=== PATIENT | female | born 1965 | race American Indian/Alaskan Native ===

== ENCOUNTER 2025-10-13 11:34 | Emergency (ER) | payer MEDICAID, SELFPAY ==
[2025-10-13 11:38] VITALS: PULSE 61; O2SAT 97
[2025-10-13 11:41] VITALS: BP 130/75; PULSE 84; RESP 18; TEMP 37.3; O2SAT 96
--- NOTE | 2025-10-13 12:07 | XR_ITS ---
Examination: Wrist, left 3 views Technique: Wrist AP, oblique, lateral 3 views Date and time of exam: October 13, 2025, 1224 hours INDICATIONS: Patient fell today with injury to the wrist, wrist pain. FINDINGS: No acute fracture No dislocation No foreign body IMPRESSION: No acute fracture Recommend short-term follow-up as clinically warranted
--- NOTE | 2025-10-13 12:08 | XR_ITS ---
EXAMINATION: CT head/brain wo con ORDERING PROVIDER: ROLANDO Siddiqui HISTORY: trauma TECHNIQUE: CT scanner was used in the volumetric, helical non-contrast acquisition of the head with 2-D and 3-D reformats created on a separate workstation and submitted for interpretation. Institutional dose reducing protocols were utilized. Images are mildly motion degraded. RADIATION DOSE: DLP 976 mGy-cm COMPARISON: 09/29/2024, CT stroke protocol. FINDINGS: No acute intracranial hemorrhage, mass effect, midline shift. Again seen are old encephalomalacia changes involve the left lateral parietal lobe and posterior right parietal lobe along the parieto-occipital fissure. There is similar mild prominence of the ventricular system in the setting of mild to moderate global parenchymal volume loss. Also again seen are progressive calcifications involving the basal ganglia, as well as progressive subcortical and periventricular white matter hypodensities. There is vermian atrophy, nonspecific, but can be seen with chronic alcohol use. There is no hyperdense vessel sign. There are moderate to heavy calcifications of the internal carotid arteries. Globes are grossly unremarkable. No skull fracture identified. Subcutaneous soft tissues. Sinuses mastoid air cells clear IMPRESSION: 1. No acute intracranial hemorrhage, mass effect or midline shift. 2. 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 3. Progressive white matter hypodensities which can be seen with chronic small vessel ischemic changes.
[2025-10-13] MEDS: ACETAMINOPHEN 325 MG TABLET 650 MG PO (12:11)
--- NOTE | 2025-10-13 13:23 | EDNOTE_ITS ---
ED Fall Injury RME/HPI General Chief Complaint: Fall Stated Complaint: FALL Time Seen by Provider: 10/13/25 12:02 Source: patient Arrival date/time: 10/13/25 11:34 60-year-old female with a history of hyperlipidemia, hypertension presents to the emergency room with a chief complaint of bilateral wrist pain and a headache after a ground-level fall that occurred yesterday afternoon Mode of arrival: ambulatory Limitations: no limitations Related Data Home Medications ?Medication ?Instructions ?Recorded ?Confirmed amlodipine 10 mg tablet 10 mg PO DAILY 09/29/2409/20 atorvastatin 10 mg tablet 10 mg PO DAILY 09/29/2409/20 levothyroxine 137 mcg tablet 137 mcg PO QDAY 09/29/24 09/29/24 (Synthroid) Allergies Allergy/AdvReac Type Severity Reaction Status Date / Time No Known Allergies Allergy Verified 10/13/25 12:00 Review of Systems Review of Systems Systems Reviewed: All systems reviewed, normal except as documented Constitutional Constitutional: Reports system reviewed and no additional complaints, except as documented, Denies fatigue, Denies fever(s), Reports headache(s) and Denies weakness Eyes Eyes: Reports system reviewed and no additional complaints, except as documented, Denies blurry vision and Denies change in vision ENT Ears, Nose, Mouth, and Throat: Reports system reviewed and no additional complaints, except as documented, Denies otalgia, Reports headache(s), Denies nasal congestion, Denies throat swelling and Denies vertigo Cardiovascular Cardiovascular: Reports system reviewed and no additional complaints, except as documented, Denies chest pain, Denies dyspnea and Denies dyspnea on exertion Respiratory Respiratory: Reports system reviewed and no additional complaints, except as documented, Denies chest congestion, Denies cough, Denies dyspnea, Denies dys pnea on exertion and Denies wheezing Gastrointestinal Gastrointestinal: Reports system reviewed and no additional complaints, except as documented, Denies abdominal pain, Denies cramping, Denies nausea and Denies vomiting Genitourinary Genitourinary: Reports system reviewed and no additional complaints, except as documented Musculoskeletal Musculoskeletal: Reports system reviewed and no additional complaints, except as documented, Reports arthralgias and Denies back pain Integumentary/Breasts Skin/Breast: Reports system reviewed and no additional complaints, except as documented and Denies wounds Neurologic Neurologic: Reports system reviewed and no additional complaints, except as documented, Denies confusion, Reports headache(s), Denies lack of coordination, Denies vertigo and Denies weakness Psychiatric Psychiatric: Reports system reviewed and no additional complaints, except as documented, Denies anxiety, Denies confusion, Denies depression, Denies paranoia, Denies suicidal ideation and Denies tactile hallucinations Endocrine Endocrine: Reports system reviewed and no additional complaints, except as documented and Denies fatigue Hematologic/Lymphatic Hematologic/Lymphatic: Reports system reviewed and no additional complaints, except as documented and Denies lymphadenopathy Allergic/Immunologic Allergic/Immunologic: Reports system reviewed and no additional complaints, except as documented, Denies throat swelling, Denies urticaria and Denies wheezing Past Medical History Past Medical History NEUROLOGIC: Positive Neurological Disorders, Cerebrovascular Accident and Seizures CARDIAC: Positive Hypercholesterolemia and Hypertension; Negative Cardiac Disorders or Congestive Heart Failure RESPIRATORY: Negative Chronic Obstructive Pulmonary Disease (COPD) or Asthma GASTROINTESTINAL: Positive Gastrointestinal Disorders and Hepatitis ENDOCRINE: Positive Hyperthyroidism and Hypothyroidism; Negative Diabetes Mellitus Type 1 or Diabetes Mellitus Type 2 HEMATOLOGIC: Negative Sickle Cell Disease OTHER HISTORY: Positive Hepatitis C Social History SMOKING STATUS: Never smoker SUBSTANCE USE: marijuana and methamphetamine ED Exam General Limitations: Present no limitations General appearance: Present alert and in no apparent distress Head Head exam: Present atraumatic Eye Eye exam: Present normal appearance, PERRL and EOMI ENT ENT exam: Present normal exam, normal oropharynx and mucous membranes moist Neck Neck exam: Present normal inspection, full ROM and trachea midline Chest Chest inspection: Present normal inspection and symmetric chest wall rise Respiratory Respiratory exam: Present normal lung sounds bilaterally Cardiovascular Cardiovascular exam: Present regular rate, normal rhythm and normal heart sounds Abdominal Exam Abdominal exam: Present soft and normal bowel sounds Extremities Exam Extremities exam: Present normal inspection and full ROM Expanded Upper Extremity Exam Shoulder exam: Present normal inspection Arm exam: Present normal inspection Elbow exam: Present normal inspection Forearm/Wrist exam: Present tenderness Hand exam: Present normal inspection Vascular exam: Normal capillary refill Back Exam Back exam: Present normal inspection and full ROM Neurological Exam Neurological exam: Present alert, oriented X3 and CN II-XII intact Psychiatric Psychiatric exam: Present normal affect and normal mood Skin Skin exam: Present warm, dry, intact and normal color Course Quality Measures none Orders Category Date Time Status CT head/brain wo con Stat Exams 10/13/25 12:08 Completed XR wrist comp BI min 3V Stat Exams 10/13/25 12:07 Completed Acetaminophen Tab [Tylenol Tab] Med 10/13/25 12:08 Discontinued 650 mg PO X1 ONE Ketorolac Inj [Toradol Inj] Med 10/13/25 12:07 Discontinued 30 mg IM X1 ONE Vital Signs Vital signs: Vital Signs Temperature 99.2 F 10/13/25 11:41 Pulse Rate 84 10/13/25 11:41 Respiratory Rate 18 10/13/25 11:41 Blood Pressure 130/75 10/13/25 11:41 Pulse Oximetry (%) 96 10/13/25 11:41 Oxygen Delivery Method Room Air 10/13/25 11:41 Fall MDM Narrative MDM Narrative:: 60-year-old female with a history of hyperlipidemia, hypertension presents to the emergency room with a chief complaint of bilateral wrist pain and a headache after a ground-level fall that occurred yesterday afternoon Patient is hemodynamically stable and in no apparent distress Physical examination shows bilateral wrist pain with palpation. There is no swelling and there is full range of motion. Patient is also complaining of a headache. A CT of the head and brain was completed and was negative for any acute findings Patient was discharged and educated to follow-up with primary care provider in the next 24 to 48 hours and return to the emergency room for any evidence of worsening signs or symptoms Patient data External records reviewed:: [facility] previous records Clinical information provided by:: patient Social determinants that could affect healthcare access:: none Patient has the following chronic illnesses:: No chronic illness How is presenting disease/condition affected by chronic disease/condition?: no chronic disease Evaluation data The following diagnostics were reviewed and interpreted by me:: lab results and radiology exam(s) Lab and/or radiology exams considered but not ordered:: Labs and radiology exams considered and not Interpretation Summary: CT head and brain-FINDINGS: No acute intracranial hemorrhage, mass effect, midline shift. Again seen are old encephalomalacia changes involve the left lateral parietal lobe and posterior right parietal lobe along the parieto-occipital fissure. There is similar mild prominence of the ventricular system in the setting of mild to moderate global parenchymal volume loss. Also again seen are progressive calcifications involving the basal ganglia, as well as progressive subcortical and periventricular white matter hypodensities. There is vermian atrophy, nonspecific, but can be seen with chronic alcohol use. There is no hyperdense vessel sign. There are moderate to heavy calcifications of the internal carotid arteries. Globes are grossly unremarkable. No skull fracture identified. Subcutaneous soft tissues. Sinuses mastoid air cells clear IMPRESSION: 1. No acute intracranial hemorrhage, mass effect or midline shift. 2. 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 3. Progressive white matter hypodensities which can be seen with chronic small vessel ischemic changes. Medications / Prescriptions Medications or Prescriptions considered but not ordered:: Medication given Medication administrations:: Medication Administration History Discontinued Medications Acetaminophen (Acetaminophen 325 Mg Tablet) 650 mg PO X1 ONE Stop: 10/13/25 12:09 Last Admin: 10/13/25 12:11 Dose: 650 mg Documented By: DEO Ketorolac Tromethamine (Ketorolac Inj 60 Mg/2 Ml Vial) 30 mg IM X1 ONE Stop: 10/13/25 12:08 Last Admin: 10/13/25 12:11 Dose: Not Given Documented By: DEO Non-Admin Reason: Cancelled by Provider Medication given Consultations Consultation(s) initiated? (list below): No Diagnosis Fall Differential Diagnosis: concussion with loss of consciousness and concussion without loss of consciousness Most likely diagnosis given after review of the tests above:: Closed head injury Admission Indicated Admission indicated?: not indicated Admission Request Was there a request for admission?: No Disposition Plan Disposition Plan: Discharge Discharge Attestation Discharge Attestation: The patient and all family members were given an opportunity to ask questions and understood the discharge instructions. Discharge instructions specifically effects, indications for sooner follow up or return to the emergency department, and the expected course of current diagnosis. Patient condition: Stable Discharge Plan Plan Patient Disposition: HOME (Self Care) Discharge Disposition comment: Stable Prescriptions/Referrals Prescriptions/Med Rec: No Action levothyroxine [Synthroid] 137 mcg Tablet 137 mcg PO QDAY atorvastatin 10 mg tablet 10 mg PO DAILY amlodipine 10 mg tablet 10 mg PO DAILY Referrals: Gurmeet Paul PA-C [Primary Care Provider] - In 1 week Problem List Clinical Impression: Closed head injury Patient/Caregiver Discharge Instructions Education Materials: ED Head Injury (Adult) Additional Instructions: Please follow-up with your primary care provider in the next 24 to 48 hours X-rays of your bilateral wrist were negative for any acute findings CT of your head and brain was negative for any acute findings For any evidence of worsening signs or symptoms return to the emergency room immediately Print Language: Mohawk Stand Alone Forms: Dasha Award Info., Work/School Release, Patient Portal Info Letter PA/ERP IMPLEMENTATION CONSULTANT Supervising Physician PA/ERP IMPLEMENTATION CONSULTANT Supervising Physician: Dr. Kirkland
== END 2025-10-13 13:27 | disposition home or self-care (01) ==
PROVIDERS: Emergency Provider Nurse Practitioner Family; PCP Physician Assistant
DX: S09.90XA Unspecified injury of head, initial encounter (principal); S69.92XA Unspecified injury of left wrist, hand and finger(s), initial encounter; S69.91XA Unspecified injury of right wrist, hand and finger(s), initial encounter; M18.11 Unilateral primary osteoarthritis of first carpometacarpal joint, right hand; M25.831 Other specified joint disorders, right wrist; W18.30XA Fall on same level, unspecified, initial encounter
CPT/HCPCS: 70450; 73110; 99283; A9270

== ENCOUNTER 2025-10-13 15:01 | Emergency (ER) | payer MEDICAID, SELFPAY ==
[2025-10-13 15:40] VITALS: BP 126/87; PULSE 88; RESP 19; TEMP 37; O2SAT 96
--- NOTE | 2025-10-13 15:59 | XR_ITS ---
EXAMINATION: Lumbar spine 3 views TECHNIQUE: AP lateral: Lateral lower lumbar spine 3 views Date and time: October 13, 2025, 1617 hours INDICATIONS: Patient fell today with injury to the lower back, lower back pain. FINDINGS: Lumbar levoscoliosis 23 degrees No lumbar fracture Moderate lumbar spondylosis Moderate to advanced diffuse lumbar degenerative disc disease IMPRESSION: Moderate to advanced diffuse lumbar degenerative disc disease
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
--- NOTE | 2025-10-13 17:56 | EDNOTE_ITS ---
ED Fall Injury RME/HPI General Chief Complaint: Back Pain/Injury Stated Complaint: FALL; NECK/BACK/L) RIB PAIN Time Seen by Provider: 10/13/25 15:05 Arrival date/time: 10/13/25 15:01 This is a case of 60-year-old female with history of hypertension and hyperlipidemia came in in the emergency room with her son due to fall injury history of present illness started yesterday tripped and fell at landed on his abdomen patient was seen this morning where CT scan of the head and both wrist x-ray was performed both were normal and was discharged patient condition improved thus the patient was discharged with stable condition patient return today now complaining with lower back pain and left rib pain denies any s hortness of breath or chest pain denies any other pain and injury denies any neck or abdominal injury Limitations: no limitations Related Data Home Medications ?Medication ?Instructions ?Recorded ?Confirmed amlodipine 10 mg tablet 10 mg PO DAILY 09/29/2409/20 atorvastatin 10 mg tablet 10 mg PO DAILY 09/29/2409/20 levothyroxine 137 mcg tablet 137 mcg PO QDAY 09/29/24 09/29/24 (Synthroid) Previous Rx's ?Medication ?Instructions ?Recorded tramadol 25 mg tablet 25 mg PO Q6H PRN pain #8 tab s 10/13/25 Allergies Allergy/AdvReac Type Severity Reaction Status Date / Time No Known Allergies Allergy Verified 10/13/25 15:04 Review of Systems Review of Systems Systems Reviewed: All systems reviewed, normal except as documented Constitutional Constitutional: Reports system reviewed and no additional complaints, except as documented and Reports as per HPI ENT Ears, Nose, Mouth, and Throat: Denies neck pain Cardiovascular Cardiovascular: Reports system reviewed and no additional complaints, except as documented and Reports as per HPI Respiratory Respiratory: Reports system reviewed and no additional complaints, except as documented and Reports as per HPI Gastrointestinal Gastrointestinal: Reports system reviewed and no additional complaints, except as documented and Reports as per HPI Musculoskeletal Musculoskeletal: Reports system reviewed and no additional complaints, except as documented, Reports as per HPI, Reports back pain and Denies neck pain Neurologic Neurologic: Reports system reviewed and no additional complaints, except as documented and Reports as per HPI Past Medical History Past Medical History NEUROLOGIC: Positive Neurological Disorders, Cerebrovascular Accident and Seizures CARDIAC: Positive Hypercholesterolemia and Hypertension; Negative Cardiac Disorders or Congestive Heart Failure RESPIRATORY: Negative Chronic Obstructive Pulmonary Disease (COPD) or Asthma GASTROINTESTINAL: Positive Gastrointestinal Disorders and Hepatitis ENDOCRINE: Positive Hyperthyroidism and Hypothyroidism; Negative Diabetes Mellitus Type 1 or Diabetes Mellitus Type 2 HEMATOLOGIC: Negative Sickle Cell Disease OTHER HISTORY: Positive Hepatitis C Social History SMOKING STATUS: Never smoker SUBSTANCE USE: marijuana and methamphetamine ED Exam General Limitations: Present no limitations General appearance: Present alert, in no apparent distress and other (Patient is awake alert oriented not in distress nontoxic looking well-hydrated well- nourished) Head Head exam: Present atraumatic, normocephalic and normal inspection Eye Eye exam: Present normal appearance, PERRL and EOMI ENT ENT exam: Present normal exam, normal oropharynx and mucous membranes moist Neck Neck exam: Present normal inspection, full ROM, trachea midline and other (Negative for meningeal sign ROM intact neurovascular); Absent tenderness, meningismus, lymphadenopathy or thyromegaly Chest Chest inspection: Present normal inspection, symmetric chest wall rise, tenderness and other (Mild tenderness on the left lateral rib but no contusion no hematoma no crepitation no deformity no palpable rib fracture no subcutaneous emphysema ROM intact neurovascular in) Respiratory Respiratory exam: Present normal lung sounds bilaterally; Absent respiratory distress, wheezes, stridor, accessory muscle use or prolonged expiratory phase Cardiovascular Cardiovascular exam: Present regular rate, normal rhythm and normal heart sounds; Absent bradycardia, tachycardia, irregular rhythm, systolic murmur or diastolic murmur Abdominal Exam Abdominal exam: Present soft and normal bowel sounds; Absent distention, tenderness, guarding, rebound, rigidity, diminished bowel sounds, hyperactive bowel sounds, hypoactive bowel sounds or organomegaly Extremities Exam Extremities exam: Present normal inspection and full ROM Back Exam Back exam: Present normal inspection, full ROM and tenderness (Mild tenderness L1 L5 no crepitation no deformity no paravertebral tenderness no paraspinal tenderness no CVA tenderness steady gait); Absent CVA tenderness (R), CVA tenderness (L), muscle spasm, paraspinal tenderness, vertebral tenderness, sciatic notch tenderness (R), sciatic notch tenderness (L), straight leg raise (R) or straight leg raise (L) Neurological Exam Neurological exam: Present alert, oriented X3, CN II-XII intact, normal gait, reflexes normal and other (Awake alert oriented x 4 no focal deficit GCS 15/15 steady gait memory intact no slurring speech no facial droop motor or sensory reflex in all extremities were all normal negative Babinski); Absent motor sensory deficit Psychiatric Psychiatric exam: Present normal affect and normal mood Skin Skin exam: Present warm, dry, intact and normal color Course Quality Measures none Orders Category Date Time Status XR lumbar spine 2-3V Stat Exams 10/13/25 15:59 Completed XR ribs LT 2V Stat Exams 10/13/25 15:59 Completed Vital Signs Vital signs: Vital Signs Temperature 98.6 F 10/13/25 15:40 Pulse Rate 88 10/13/25 15:40 Respiratory Rate 19 10/13/25 15:40 Blood Pressure 126/87 H 10/13/25 15:40 Pulse Oximetry (%) 96 10/13/25 15:40 Oxygen Delivery Method Room Air 10/13/25 15:40 Oxygen saturation is 96% in room air Fall MDM Narrative MDM Narrative:: This is a case of 60-year-old female with history of hypertension and hyperlipidemia came in in the emergency room with her son due to fall injury history of present illness started yesterday tripped and fell at landed on his abdomen patient was seen this morning where CT scan of the head and both wrist x-ray was performed both were normal and was discharged patient condition improved thus the patient was discharged with stable condition patient return today now complaining with lower back pain and left rib pain denies any shortness of breath or chest pain denies any other pain and injury denies any neck or abdominal injury patient physical examination vital signs stable BP stable not tachycardic not tachypneic afebrile and nonhypoxic patient noted to be awake alert oriented x 4 no focal deficit GCS 15/15 steady gait memory intact patient is not confused at the time of exam steady gait patient noted to have mild tenderness on the lumbar area no crepitation no deformity no paraspinal no paravertebral tenderness no leg raise exam negative no cellulitis ROM intact neurovascular intact noted tenderness on the left rib no crepitation no deformity no palpable rib fracture clear breath sounds no crackles no rales no retraction no stridor breath sounds were equal abdomen soft no guarding no rebound no rigidity no tenderness the rest of the physical examination neurological exam is normal and unremarkable I reviewed the previous result of the patient CT scan of the head were normal wrist x-ray were also normal patient x-ray of the lumbar noted no fracture no dislocation but with DDD lumbar patient also noted to have negative on the rib x-ray no fracture at this point patient sustained a sprain patient will follow-up with PCP in 2 days for reevaluation the son was asking for pain medication thus I gave a low-dose of tramadol just as needed for pain only for 2 days for any worsening symptoms or any pain any changes of sensorium patient was advised to return in the emergency room immediately or call 911 Patient was discharged with comfortable condition walking with stable gait. Patient verbalized no further complains explained diagnosis and answered patient question. Patient is comfortable with the proposed management plan including the need to follow up with his/her primary care physician and any specialist if applicable Discussed patient for any urgent condition or worsening sx, He/She needed to go to emergency room immediately or call 911. Patient acknowledge the responsibility to follow up as instructed and to monitor her/his symptoms. For any persistence of the symptoms for more than 3-5 days return precaution advised. Discussed the result of the test and was given printed discharge instruction Patient data External records reviewed:: [facility] previous records Clinical information provided by:: patient and family Social determinants that could affect healthcare access:: none Patient has the following chronic illnesses:: None How is presenting disease/condition affected by chronic disease/condition?: no chronic disease Evaluation data The following diagnostics were reviewed and interpreted by me:: radiology exam(s) Lab and/or radiology exams considered but not ordered:: Reviewed Interpretation Summary: Reviewed Medications / Prescriptions Medications or Prescriptions considered but not ordered:: Given Medication administrations:: Given Consultations Consultation(s) initiated? (list below): No Diagnosis Fall Differential Diagnosis: compression fracture and other (Fracture dislocation sprain) Most likely diagnosis given after review of the tests above:: Lumbar sprain rib sprain Admission Indicated Admission indicated?: not indicated Explain why admission is indicated or not indicated:: Not indicated Admission Request Was there a request for admission?: No Admission Attestation Admission request attestation: Not indicated Disposition Plan Disposition Plan: Discharge Discharge Attestation Discharge Attestation: The patient and all family members were given an opportunity to ask questions and understood the discharge instructions. Discharge instructions specifically effects, indications for sooner follow up or return to the emergency department, and the expected course of current diagnosis. Patient condition: Stable Discharge Plan Plan Patient Disposition: HOME (Self Care) Patient condition on transfer: Stable Prescriptions/Referrals Prescriptions/Med Rec: New tramadol 25 mg tablet 25 mg PO Q6H MDD max 4 tabs per day PRN (Reason: pain) Qty: 8 0RF No Action levothyroxine [Synthroid] 137 mcg Tablet 137 mcg PO QDAY atorvastatin 10 mg tablet 10 mg PO DAILY amlodipine 10 mg tablet 10 mg PO DAILY Referrals: Gurmeet Paul PA-C [Primary Care Provider] - In 1 week Problem List Clinical Impression: Lumbar sprain, Rib sprain, DDD (degenerative disc disease), lumbar Patient/Caregiver Discharge Instructions Education Materials: Self-Care for Strains and Sprains, Common Spine and Disk Problems, ED Back Sprain/Strain Additional Instructions: Follow-up with your primary care physician in 2 days for reevaluation worsening symptoms or any emergent concern changes of sensorium headache nausea vomiting dizziness blurring of vision unsteady gait memory loss numbness weakness tingling sensation return to the emergency room immediately or call 911 continue and follow the instruction of the previous provider ice pack and warm compress as needed for pain continue the medication that was prescribed with the previous provider Print Language: Haitian Stand Alone Forms: Dasha Award Info., Patient Portal Info Letter PA/ROLANDO Supervising Physician LAXMI/ROLANDO Supervising Physician: Dr. guzman
== END 2025-10-13 19:05 | disposition home or self-care (01) ==
PROVIDERS: Emergency Provider Emergency Medicine; PCP Physician Assistant
DX: S33.5XXA Sprain of ligaments of lumbar spine, initial encounter (principal); S23.41XA Sprain of ribs, initial encounter; M51.360 Other intervertebral disc degeneration, lumbar region with discogenic back pain only; W01.0XXA Fall on same level from slipping, tripping and stumbling without subsequent striking against object, initial encounter
CPT/HCPCS: 71100; 72100